=== PATIENT | female | born 1945 | race Caucasian/White ===

== ENCOUNTER 2016-11-21 12:26 | Emergency (ER) | payer MEDICARE, OTHER ==
[~2016-11-21] VITALS: Ht 160 cm; Wt 59.5 kg
[~2016-11-21 12:26] MED LIST: AMBIEN 5MG TABLE5 MG PO; ATROVENT NASAL15 ML NS; BACTRIM DS 8001 TAB PO; CALTRATE-600 W600 MG PO; EPIPEN 2-PAK1 MG/ML IM; ESTROGEN; ESTROPIPATE1.5 MG PO; GLUCOPHAGE500 MG/TAB PO; HCTZ; HYDROCODONE; LORTAB 10/500 51 TAB PO; METFORMIN500 MG PO; METOPROLOL SUCC25 MG PO; MINIPRIN81 MG PO; NORCO 325 MG-51 TAB PO; OMEPRAZOLE DR20 MG PO; PERCOCET 325 MG1 TA2 PO; PHENERGAN W/CO120 ML PO; PREDNISONE20 MG PO; PRILOSEC40 MG PO; ROBINUL1 MG PO; TOPROL XL 25MG25 MG PO; TYLENOL 500MG500 MG PO; ULTRAM 50MG TAB50 MG PO; ULTRAM50 MG PO; ZESTRIL; ZITHROMAX Z PA250 MG PO; ZOFRAN 4MG T4 MG/TAB PO
[2016-11-21 12:31] VITALS: TEMP 98
[2016-11-21 13:41] LABS: PROTHROMBIN TIME 10.9 SECONDS (9.7-12.8)
[2016-11-21 13:44] LABS: BASO % 0.4 % (0.0-2.0); EOS % 0.8 % (0-4.0); GRAN # 2.4 (1.4-6.5); GRAN % 46.7 % (42.2-75.2); HEMATOCRIT 37.2 % (37.0-47.0); HEMOGLOBIN 12.4 g/dl (12.5-16.0); LYMPH % 38.6 % (20.0-51.0); MEAN CELL VOLUME 111 fl (80.0-100.0); MEAN CORPUSCULAR HEMOGLOBIN 37 pg (27.0-31.0); MEAN CORPUSCULAR HGB CONC 33 g/dl (33.0-37.0); MEAN PLATELET VOLUME 8.3 fl (7.4-10.4); MONO # 0.7 (0.1-0.6); MONO % 13.1 % (1.7-9.3); PLATELET COUNT 351 K/mm3 (130-400); RED BLOOD COUNT 3.34 M/mm3 (4.10-5.30); REDCELL DISTRIBUTION WIDTH-CV 12.6 % (11.5-14.5); WHITE BLOOD COUNT 5.2 K/mm3 (4.8-10.8)
[2016-11-21 13:47] LABS: ADJUSTED CALCIUM 9.8 mg/dL (8.4-10.2); ALANINE AMINOTRANSFERASE 27 U/L (9-52); ALBUMIN 4.2 gm/dL (3.5-5.0); ALKALINE PHOSPHATASE 43 U/L (50-136); ANION GAP 11 mmol/L (7-16); BILIRUBIN,TOTAL 0.6 mg/dL (0.0-1.0); BLOOD UREA NITROGEN 21 mg/dL (7-17); CARBON DIOXIDE 25 mmol/L (22-30); CHLORIDE 100 mmol/L (98-107); CREATININE, serum 0.88 mg/dL (0.52-1.25); GLUCOSE 97 mg/dL (74-106); SODIUM 135 mmol/L (137-145); TOTAL PROTEIN 7.1 gm/dL (6.4-8.2)
[2016-11-21 13:59] LABS: TROPONIN-I < 0.012 ng/mL (0.000-0.034)
[2016-11-21] MEDS ORDERED: NORMODYNE200 MG PO (13:59)
[2016-11-21] MEDS ORDERED: ATROVENT NASAL15 ML NS (14:05)
[2016-11-21] MEDS ORDERED: ASPIRIN E.C. 8181 MG PO (14:06)
[2016-11-21] MEDS ORDERED: PROTONIX 40MG T40 MG PO (14:07)
[2016-11-21] MEDS ORDERED: DESYREL 100MG100 MG PO (14:08)
[2016-11-21] MEDS ORDERED: ROBINUL1 MG PO (14:08)
[2016-11-21 14:57] LABS: PH 5 (5-8); URINE APPEARANCE Hazy; URINE BILIRUBIN Negative (NEGATIVE); URINE BLOOD Negative (NEGATIVE); URINE COLOR Amber; URINE GLUCOSE Negative (NEGATIVE); URINE KETONE Negative (NEGATIVE); URINE UROBILINOGEN Negative (NEGATIVE)
[2016-11-21 14:58] LABS: SQUAMOUS EPITHELIAL 0-2 /hpf; URINE RBC 0-2 /hpf; URINE WBC 0-2 /hpf
[2016-11-21 15:39] VITALS: BP 172/77; PULSE 70
== END 2016-11-21 15:40 | disposition home or self-care (01) ==
LOC: COL.ER 12:26
PROVIDERS: Nurse Practitioner
DX: I10 Essential (primary) hypertension (principal); E11.9 Type 2 diabetes mellitus without complications; Z79.84 Long term (current) use of oral hypoglycemic drugs; R53.1 Weakness; R51 Headache

== ENCOUNTER → 2017-02-07 | Outpatient (CLI) | payer MEDICARE, OTHER ==
[~2017-02-07] MED LIST changes: +ASPIRIN E.C. 8181 MG PO; +DESYREL 100MG100 MG PO; +LOPRESSOR 550 MG/TAB PO; +NORMODYNE200 MG PO; +PROTONIX 40MG T40 MG PO
== END ==
LOC: MHCPAIN 11:13
DX: G89.29 Other chronic pain (principal); M47.817 Spondylosis without myelopathy or radiculopathy, lumbosacral region; M53.3 Sacrococcygeal disorders, not elsewhere classified; Z87.891 Personal history of nicotine dependence
CPT/HCPCS: G0463

== ENCOUNTER → 2017-02-20 | Outpatient (CLI) | payer MEDICARE, OTHER | LOC: MHCPAIN 08:34 | DX: M47.817 Spondylosis without myelopathy or radiculopathy, lumbosacral region (principal) ==

== ENCOUNTER → 2017-02-26 | Outpatient (CLI) | payer MEDICARE, OTHER | LOC: MHCPAIN 09:45 | DX: G89.29 Other chronic pain (principal); M47.817 Spondylosis without myelopathy or radiculopathy, lumbosacral region; M53.3 Sacrococcygeal disorders, not elsewhere classified | CPT/HCPCS: G0463 ==

== ENCOUNTER 2017-04-21 12:59 | Emergency (ER) | payer MEDICARE, OTHER ==
[~2017-04-21] VITALS: Ht 160 cm; Wt 58.6 kg
[~2017-04-21 12:59] MED LIST changes: -LOPRESSOR 550 MG/TAB PO
[2017-04-21 13:01] VITALS: TEMP 98.6
[2017-04-21 13:38] LABS: BASO % 0.5 % (0.0-2.0); EOS % 0.6 % (0-4.0); GRAN # 3.6 (1.4-6.5); HEMOGLOBIN 12.4 g/dl (12.5-16.0); LYMPH % 30.4 % (20.0-51.0); MEAN CELL VOLUME 107 fl (80.0-100.0); MEAN CORPUSCULAR HEMOGLOBIN 37 pg (27.0-31.0); MEAN CORPUSCULAR HGB CONC 34 g/dl (33.0-37.0); MEAN PLATELET VOLUME 8.7 fl (7.4-10.4); MONO # 0.8 (0.1-0.6); MONO % 12.2 % (1.7-9.3); PLATELET COUNT 329 K/mm3 (130-400); RED BLOOD COUNT 3.39 M/mm3 (4.10-5.30); REDCELL DISTRIBUTION WIDTH-CV 11.6 % (11.5-14.5); WHITE BLOOD COUNT 6.5 K/mm3 (4.8-10.8)
[2017-04-21 13:39] LABS: HEMATOCRIT 36.3 % (37.0-47.0)
[2017-04-21 13:53] LABS: ADJUSTED CALCIUM 9.5 mg/dL (8.4-10.2); ALBUMIN 4.5 gm/dL (3.5-5.0); BILIRUBIN,TOTAL 0.5 mg/dL (0.0-1.0); CALCIUM 9.9 mg/dL (8.4-10.2); CREATININE, serum 0.82 mg/dL (0.52-1.25); POTASSIUM 4.1 mmol/L (3.4-5.0); TOTAL PROTEIN 7.4 gm/dL (6.4-8.2)
[2017-04-21] MEDS ORDERED: LOPRESSOR 550 MG/TAB PO (14:36)
[2017-04-21 14:56] VITALS: BP 187/79; PULSE 71
== END 2017-04-21 14:57 | disposition home or self-care (01) ==
LOC: COL.ER 12:59
PROVIDERS: Family Medicine
DX: S06.0X0A Concussion without loss of consciousness, initial encounter (principal); S00.83XA Contusion of other part of head, initial encounter; I10 Essential (primary) hypertension; S93.402A Sprain of unspecified ligament of left ankle, initial encounter; W01.10XA Fall on same level from slipping, tripping and stumbling with subsequent striking against unspecified object, initial encounter; Z91.81 History of falling

== ENCOUNTER → 2017-08-14 | Outpatient (CLI) | payer MEDICARE, OTHER ==
[~2017-08-14] MED LIST changes: +LOPRESSOR 550 MG/TAB PO
== END ==
LOC: MC.RAD 09:20
DX: Z12.31 Encounter for screening mammogram for malignant neoplasm of breast (principal)

== ENCOUNTER 2018-02-03 08:47 | Outpatient (RCR) | payer MEDICARE, OTHER | END 2018-05-04 | disposition home or self-care (01) | LOC: WSST | DX: R13.10 Dysphagia, unspecified (principal); K21.9 Gastro-esophageal reflux disease without esophagitis; K22.70 Barrett's esophagus without dysplasia | CPT/HCPCS: G8996-GN; G8997-GN ==

== ENCOUNTER → 2018-02-05 | Outpatient (CLI) | payer MEDICARE, OTHER | LOC: COL.RAD 15:00 | DX: K21.9 Gastro-esophageal reflux disease without esophagitis (principal); K22.70 Barrett's esophagus without dysplasia | CPT/HCPCS: G8996-GN; G8997-GN; G8998-GN ==

== ENCOUNTER → 2018-02-17 | Outpatient (CLI) | payer MEDICARE, OTHER | LOC: COL.RAD 08:11 | DX: K22.70 Barrett's esophagus without dysplasia (principal); R06.00 Dyspnea, unspecified; K22.4 Dyskinesia of esophagus | CPT/HCPCS: A9541 ==

== ENCOUNTER → 2022-07-19 | Outpatient (CLI) | payer MEDICARE | LOC: COL.RAD 06:40 | DX: K21.9 Gastro-esophageal reflux disease without esophagitis (principal); R19.7 Diarrhea, unspecified; R14.0 Abdominal distension (gaseous); R14.2 Eructation; R68.81 Early satiety | CPT/HCPCS: A9541 ==

== ENCOUNTER → 2022-10-25 | Outpatient (CLI) | payer MEDICARE | LOC: COL.LAB 10:53 | DX: Z01.89 Encounter for other specified special examinations (principal) ==